=== PATIENT | female | born 1995 | race Two or more races ===

== ENCOUNTER 2018-12-10 18:23 | Inpatient (IN) | payer BC, OTHER ==
[~2018-12-10] VITALS: Ht 152.4 cm; Wt 50.5 kg
[2018-12-10] MEDS ORDERED: HYDROmorphone HCL 2 MG/ML VL IV ONE ×2 (19:45→21:00)
[2018-12-10] MEDS ORDERED: ONDANSETRON HCL 4 MG/2 ML VIAL IV ONE (19:45)
[2018-12-10 21:43] LABS: Eosinophils # (auto) 0.1 uL; Hemoglobin 12.8 g/dL (12.2-16.2); Lymphocytes # (auto) 2.1 uL; Monocytes # (auto) 0.6 uL; Neutrophils # (auto) 5.5 uL; Nucleated Red Blood Cells % 0.1 %; White Blood Cell 8.3 10^3/uL (4.4-10.8)
[2018-12-10 21:45] LABS: Basophils # (auto) 0.1 uL; Basophils % (auto) 0.9 % (0.0-2.0); Eosinophils % (auto) 0.9 % (0.0-7.0); Hematocrit 40.1 % (36.0-46.0); Lymphocytes % (auto) 24.7 % (10.0-50.0); Mean Corpuscular Hemoglobin 25.1 pg (28.0-32.0); Mean Corpuscular Hgb Conc. 31.8 g/dL (32.0-36.0); Mean Corpuscular Volume 78.8 fL (80.0-100.0); Monocytes % (auto) 7.4 % (0.0-12.0); Neutrophils % (auto) 66.1 % (37.0-80.0); Platelet Count (auto) 337 10^3/uL (140-450); Red Blood Cells 5.08 10^6/uL (4.0-5.20); Red Cell Distribution Width 18.8 % (11.8-14.3)
[2018-12-10 22:06] LABS: Albumin 4.2 g/dL (3.4-5.0); Calcium 9.2 mg/dL (8.5-10.1); Magnesium 2.1 mg/dL (1.6-2.6); Potassium 3.7 mmol/L (3.5-5.1)
[2018-12-10 22:11] LABS: BUN/Creatinine Ratio 11.5; Bilirubin, Total 0.5 mg/dL (0.2-1.0); Total Protein 8.1 g/dL (6.4-8.2)
[2018-12-10 22:14] LABS: INR 1.12 (0.9-1.15); Partial Thromboplastin Time 29.2 sec (23.78-33.04); Prothrombin Time 11.9 sec (9.27-12.13)
[2018-12-10] MEDS ORDERED: IOHEXOL 300 MG/ML 100ML BOTTLE IJ ONE (22:50)
[2018-12-10] MEDS ORDERED: SODIUM CHLORIDE 0.9% 1,000 ML IV ONE (23:00)
[2018-12-10 23:03] LABS: Urine Bacteria MOD /hpf (None Seen); Urine Blood Negative /uL (Negative); Urine Hyaline Cast FEW /lpf (0 - 2); Urine Mucus FEW (None Seen); Urine WBC 27 /hpf (0 - 5)
[2018-12-11] MEDS ORDERED: cefTRIAXone 1GM/50ML D5W 50 ML IV ONE (01:00)
[2018-12-11] MEDS ORDERED: PROMETHAZINE HCL 25 MG/ML 1ML IV ONE (01:37)
[2018-12-11] MEDS ORDERED: TEMAZEPAM 15 MG CAP PO PRN (05:45)
[2018-12-11] MEDS ORDERED: MORPHINE SULF INJ 2 MG/ML SYRINGE 1ML IV PRN (05:45)
[2018-12-11] MEDS ORDERED: HYDROcodone-ACET 5/325MG TAB PO PRN (05:45)
[2018-12-11] MEDS ORDERED: ACETAMINOPHEN 325 MG TAB PO PRN (05:45)
[2018-12-11] MEDS ORDERED: MORPHINE SULFATE 4 MG/ML SYR/VIAL IV PRN (05:45)
[2018-12-11] MEDS ORDERED: NITROGLYCERIN 0.4 MG SL TAB SL PRN (05:45)
--- NOTE | 2018-12-11 07:50 | NUR ---
RECEIVED FROM ER AWAKE ALERT ORIENTED TIMES 4. MOTHER AT BEDSIDE. INFORMED OF PLAN OF CARE.
--- NOTE | 2018-12-11 09:00 | NUR ---
MOTHER AT BEDSIDE ASKING ABOUT J POUCH. SHE SAID THE PATIENT IS HAVING SYMPTOMS/COMPLICATIONS OF J POUCH. SHE STATES SHE HAS HAD THE JPOUCH FOR 2 YEARS WITH NO COMPLICATIONS UNTIL NOW. SHE IS REQUESTING GI TO SEE PATIENT. I INFORMED HER THAT SHE WAS ADMITTED FOR [facility]NCOPE AND HAS A CARDIOLOGY CONSULT PENDING. I ASLO INFORMED HER THAT I WOULD NOTIFY THE ATTENDING PHYSICIAN THAT THEY ARE REQUESTING GI CONSULT. SHE STATES HER HEAD ATHLETIC TRAINER IS A [facility].
[2018-12-11 09:30] VITALS: BP 101/58
[2018-12-11] MEDS: ONDANSETRON HCL 4 MG/2 ML VIAL IV PRN ×4 (10:07→21:51)
--- NOTE | 2018-12-11 10:07 | NUR ---
MEDICATED WITH MORPHINE AND ZOFRAN FOR ABDOMINAL PAIN 03/07.
[2018-12-11] MEDS: cefTRIAXone 1GM/50ML D5W 50 ML IV SCH (10:24)
[2018-12-11] MEDS: FAMOTIDINE 20 MG TAB PO SCH ×2 (10:24→21:53)
--- NOTE | 2018-12-11 10:40 | NUR ---
PATIENT STATES PAIN IS STILL THERE 12/05
[2018-12-11 12:35] VITALS: BP 147/93
[2018-12-11 12:40] VITALS: BP 122/74
[2018-12-11] MEDS: MORPHINE SULFATE 4 MG/ML SYR/VIAL IV PRN ×3 (13:50→21:52)
[2018-12-11 16:50] VITALS: BP 93/55
[2018-12-11 18:57] LABS: Alcohol, Urine < 3.0 mg/dL (0-5); Amphetamine Screen, Urine NEGATIVE (NEGATIVE); Barbiturate Scree,Urine NEGATIVE (NEGATIVE); Benzodiazephine Screen, Urine NEGATIVE (NEGATIVE); Cannabinoid Screen, Urine POSITIVE (NEGATIVE); Cocaine Screen, Urine NEGATIVE (NEGATIVE); Opiate Scree,Urine POSITIVE (NEGATIVE); Phencyclidine Screen, Urine NEGATIVE (NEGATIVE)
--- NOTE | 2018-12-11 20:00 | NUR ---
Opening shift Note Pt is resting in bed A/Ox4 breathing is even and unlabored. NO signs of distress at this time. Bed is in lowest position, brake is set, bed alarm is set for pt safety. Pt asked when she can have pain Meds again, informed her that she can have Morphine again at 2145 per orders. Will continue to monitor Q1H and PRN. Signed: 12/12/18 at 041 by MALISSA PACHECO SN <Co-Signature Required> Co-Signed: 12/12/18 at 412 by BETSY SIMPSON RN
[2018-12-11 21:50] VITALS: BP 90/55
[2018-12-12 05:00] VITALS: BP 87/54
[2018-12-12] MEDS: ONDANSETRON HCL 4 MG/2 ML VIAL IV PRN ×3 (05:05→14:04)
[2018-12-12] MEDS: MORPHINE SULFATE 4 MG/ML SYR/VIAL IV PRN ×3 (05:10→14:04)
[2018-12-12 06:16] LABS: Basophils # (auto) 0.1 uL; Eosinophils # (auto) 0.1 uL; Hemoglobin 12.1 g/dL (12.2-16.2); Monocytes # (auto) 0.6 uL
[2018-12-12 06:19] LABS: Basophils % (auto) 0.8 % (0.0-2.0); Eosinophils % (auto) 1.9 % (0.0-7.0); Hematocrit 37.8 % (36.0-46.0); Lymphocytes # (auto) 2.3 uL; Lymphocytes % (auto) 33.1 % (10.0-50.0); Mean Corpuscular Hemoglobin 25.2 pg (28.0-32.0); Mean Corpuscular Volume 78.8 fL (80.0-100.0); Monocytes % (auto) 8.4 % (0.0-12.0); Neutrophils # (auto) 3.9 uL; Neutrophils % (auto) 55.8 % (37.0-80.0); Platelet Count (auto) 299 10^3/uL (140-450); Red Cell Distribution Width 18.9 % (11.8-14.3); White Blood Cell 7.1 10^3/uL (4.4-10.8)
[2018-12-12 06:30] VITALS: BP 98/61
[2018-12-12 06:40] LABS: BUN/Creatinine Ratio 7.1
--- NOTE | 2018-12-12 08:27 | NUR ---
PATIENT REQUESTING DILAUDID. SHE SAID THE MORPHINE ISN'T WORKING. I WILL NOTIFY DR Leanna BOUCHER OF PATIENT'S REQUEST. I ASLO TOLD HER I CAN NOT GIVE HER NARCOTICS WITH HER BLOOD PRESSURE BEING SO LOW 89/56
[2018-12-12 08:41] VITALS: BP 99/44
[2018-12-12] MEDS: cefTRIAXone 1GM/50ML D5W 50 ML IV SCH (10:08)
[2018-12-12] MEDS: FAMOTIDINE 20 MG TAB PO SCH (10:09)
[2018-12-12 12:32] VITALS: BP 80/49
[2018-12-13] MEDS ORDERED: DOXY25TA9 PO (14:30)
[2018-12-13] MEDS ORDERED: HYDR-4683 PO (14:30)
== END 2018-12-12 15:25 | disposition home or self-care (01) | DRG 690 ==
LOC: EDBD 18:23 → ER 18:23 → TELE 12-11 05:55 → TELE-WESTW 12-11 08:48
PROVIDERS: ADMIT Nurse Practitioner; ATTEND Family Medicine
DX: N39.0 Urinary tract infection, site not specified (principal); K50.10 Crohn's disease of large intestine without complications; G89.4 Chronic pain syndrome; F12.90 Cannabis use, unspecified, uncomplicated; Z90.49 Acquired absence of other specified parts of digestive tract; D27.9 Benign neoplasm of unspecified ovary; R00.2 Palpitations; Z88.7 Allergy status to serum and vaccine; Z91.013 Allergy to seafood
CPT/HCPCS: 36415; 70450; 71045; 74176; 80048; 80053; 80307; 81001; 81025; 82150; 82962; 83605; 83690; 83735; 84484; 85025; 85610; 85730; 87040; 87081; 87086; 93005; 93306; 93886; 96365; 96375; 96376; G0378; J0696; J2405

== ENCOUNTER 2018-12-13 01:44 | Inpatient (IN) | payer BC ==
[~2018-12-13] VITALS: Ht 172.7 cm; Wt 53.7 kg
[2018-12-13 03:18] LABS: Eosinophils # (auto) 0.1 uL; Mean Corpuscular Hemoglobin 25.3 pg (28.0-32.0); Mean Corpuscular Hgb Conc. 32.1 g/dL (32.0-36.0); Red Blood Cells 5.15 10^6/uL (4.0-5.20)
[2018-12-13 03:20] LABS: Basophils # (auto) 0.1 uL; Basophils % (auto) 0.7 % (0.0-2.0); Eosinophils % (auto) 1.4 % (0.0-7.0); Hematocrit 40.5 % (36.0-46.0); Lymphocytes # (auto) 2.6 uL; Mean Corpuscular Volume 78.7 fL (80.0-100.0); Monocytes # (auto) 0.6 uL; Monocytes % (auto) 7.8 % (0.0-12.0); Neutrophils # (auto) 4.2 uL; Neutrophils % (auto) 56.1 % (37.0-80.0); Nucleated Red Blood Cells % 0.2 %; Platelet Count (auto) 323 10^3/uL (140-450); Red Cell Distribution Width 18.5 % (11.8-14.3); White Blood Cell 7.5 10^3/uL (4.4-10.8)
[2018-12-13 03:25] LABS: Albumin 3.7 g/dL (3.4-5.0); Calcium 8.9 mg/dL (8.5-10.1); Potassium 4.5 mmol/L (3.5-5.1)
[2018-12-13 03:27] LABS: BUN/Creatinine Ratio 10.8
[2018-12-13 03:30] LABS: Bilirubin, Total 0.4 mg/dL (0.2-1.0); Total Protein 8.5 g/dL (6.4-8.2)
[2018-12-13] MEDS ORDERED: SODIUM CHLORIDE 0.9% 1,000 ML IVB ONE (08:18)
[2018-12-13] MEDS ORDERED: PROMETHAZINE HCL 25 MG/ML 1ML IV PRN ×2 (08:30→13:00)
[2018-12-13] MEDS ORDERED: PANTOPRAZOLE 40 MG TAB PO ONE (08:30)
[2018-12-13] MEDS ORDERED: KETOROLAC TROMETH 30 MG/ML 1ML VIAL IV ONE (08:30)
[2018-12-13 08:59] LABS: Urine Bacteria NONE SEEN /hpf (None Seen); Urine Blood Negative /uL (Negative); Urine Mucus FEW (None Seen); Urine WBC 13 /hpf (0 - 5)
[2018-12-13] MEDS ORDERED: cefTRIAXone 1GM/50ML D5W 50 ML IV ONE (11:15)
[2018-12-13] MEDS ORDERED: SODIUM CHLORIDE 0.9% 1,000 ML IV SCH (12:54)
[2018-12-13] MEDS ORDERED: traMADol HCL 50 MG TAB PO PRN (13:00)
[2018-12-13] MEDS ORDERED: NITROGLYCERIN 0.4 MG SL TAB SL PRN (13:00)
[2018-12-13] MEDS ORDERED: MORPHINE SULF INJ 2 MG/ML SYRINGE 1ML IV PRN (13:00)
[2018-12-13] MEDS ORDERED: ACETAMINOPHEN 500 MG TAB PO PRN (13:00)
[2018-12-13] MEDS ORDERED: HYDR-4683 PO (14:30)
[2018-12-13] MEDS ORDERED: DOXY25TA9 PO (14:30)
--- NOTE | 2018-12-13 14:30 | NUR ---
ADMIT: LUIS A MILLAN admitted to tele/MS after SBAR received. Patient oriented to DAVID AMAYA, primary RN, unit, room, bed, and unit policies regarding patient care and visiting hours. Patient weighed by bedscale and encouraged to call if they need something. All questions and concerns addressed, patient verbalized understanding. Note:
[2018-12-13] MEDS: D5W/SOD CHLO 0.9% 1,000 ML IV SCH (15:19)
[2018-12-13] MEDS: KETOROLAC TROMETH 30 MG/ML 1ML VIAL IV PRN (15:19)
[2018-12-13] MEDS: ACCU-CHEK COMFORT CURVE STRIP VI SCH ×3 (16:00→23:14)
--- NOTE | 2018-12-13 17:18 | NUR ---
PAIN: Patient continues to complain of abdominal pain. Patient previously medicated with Toradol with little to no relief of pain. Patient offered Tramadol and is refusing stating "these pain medications don't work" and is requesting to speak with the doctor about her pain medications. Patient is also requesting to have some crackers, but RN explained to patient that current diet order has her NPO. Dr Stewart, parlor chaperone hospitalist, paged.
--- NOTE | 2018-12-13 17:45 | NUR ---
FAMILY: Spoke with patient and her mother in length at bedside. Mother is voicing concern about her daughter being NPO due to her 'Jpouch'. Patient and mother state that she must constantly have crackers to help with the stomach acid production or she will be in immense pain. Explained that Dr Stewart was paged and I will request he come speak with patient and her mother in regards to diet and pain medication. Patient states that a combination of dialudid and zofran help manage her pain. Addendum: 12/13/18 at 1748 by DAVID AMAYA RN Patient provided crackers and ice chips despite, NPO status.
--- NOTE | 2018-12-13 18:09 | NUR ---
MD: T/C from Dr Stewart. Relayed info to MD in regards to patient and mother's concern about diet and pain medication. Orders received to place on clear liquid diet, dilaudid PRN pain and zofran PRN nausea.
[2018-12-13] MEDS: HYDROmorphone HCL 2 MG/ML VL IV PRN ×2 (18:36→22:33)
[2018-12-13] MEDS: ONDANSETRON HCL 4 MG/2 ML VIAL IV PRN (18:37)
--- NOTE | 2018-12-13 19:26 | NUR ---
Opening Shift Note Assumed care of patient, awake and alert x 4. No S/S of distress/SOB. D5/0.9% NS infusing at 100 ml/hr. Bed is in lowest position and locked. Call light within reach. Board updated. Instructed on POC and to call for assist PRN, will continue to monitor for changes Q1hr and PRN.
--- NOTE | 2018-12-13 19:33 | NUR ---
CLOSING SHIFT NOTE: Report given to NOC RNAngel. Endorsed care of patient.
[2018-12-13 21:53] VITALS: BP 101/56
[2018-12-13] MEDS: FAMOTIDINE 20 MG TAB PO SCH (21:53)
[2018-12-13] MEDS: TEMAZEPAM 15 MG CAP PO PRN (22:33)
--- NOTE | 2018-12-14 00:02 | NUR ---
Paging hospitalist because patient is still reporting pain 7 out of 10 in her lower abdomen despite receiving Dilaudid 0.5 mg. I gave Toradol 15 mg IV but the reason patient was prescribed Dilaudid was because the Toradol was not working.
[2018-12-14] MEDS: KETOROLAC TROMETH 30 MG/ML 1ML VIAL IV PRN (00:07)
--- NOTE | 2018-12-14 00:57 | NUR ---
Spoke to NICK Rubi who ordered Sargeant 10/325 mg PO 1 6 hrs PRN pain.
[2018-12-14] MEDS: D5W/SOD CHLO 0.9% 1,000 ML IV SCH ×3 (01:13→20:21)
[2018-12-14] MEDS: HYDROcodone-ACET 10/325MG TAB PO PRN (01:24)
[2018-12-14] MEDS: HYDROmorphone HCL 2 MG/ML VL IV PRN ×5 (02:32→21:57)
[2018-12-14] MEDS: ACCU-CHEK COMFORT CURVE STRIP VI SCH ×3 (03:50→12:29)
[2018-12-14 05:00] VITALS: BP 101/57
[2018-12-14 06:20] LABS: Basophils # (auto) 0 uL; Basophils % (auto) 0.7 % (0.0-2.0); Eosinophils # (auto) 0.1 uL; Eosinophils % (auto) 1.9 % (0.0-7.0); Hemoglobin 11.4 g/dL (12.2-16.2); Lymphocytes # (auto) 2.3 uL; Lymphocytes % (auto) 46.5 % (10.0-50.0); Mean Corpuscular Hgb Conc. 31.7 g/dL (32.0-36.0); Monocytes # (auto) 0.4 uL; Monocytes % (auto) 7.5 % (0.0-12.0); Neutrophils # (auto) 2.2 uL; Neutrophils % (auto) 43.4 % (37.0-80.0); Nucleated Red Blood Cells % 0.1 %; Platelet Count (auto) 277 10^3/uL (140-450); Red Blood Cells 4.55 10^6/uL (4.0-5.20); Red Cell Distribution Width 18.5 % (11.8-14.3)
[2018-12-14 06:46] LABS: Albumin 3.3 g/dL (3.4-5.0); BUN/Creatinine Ratio 7.9; Calcium 8.5 mg/dL (8.5-10.1); Potassium 3.6 mmol/L (3.5-5.1)
[2018-12-14 06:48] LABS: Bilirubin, Total 0.5 mg/dL (0.2-1.0)
--- NOTE | 2018-12-14 07:30 | NUR ---
OPENING SHIFT NOTE: Received report from NOC RN, Angel. Assumed care of patient. Patient sitting up in bed. C/O abdominal pain, but is being managed with dialudid. Currently refusing [place], but is aware that the medication is available. Bed in lowest position, rails x2 up and call light within reach. Updated on plan of care. Will continue to monitor.
[2018-12-14 09:00] VITALS: BP 101/60
[2018-12-14] MEDS: FAMOTIDINE 20 MG TAB PO SCH ×2 (09:49→21:56)
[2018-12-14] MEDS: cefTRIAXone 1GM/50ML D5W 50 ML IV SCH (09:49)
[2018-12-14] MEDS: ONDANSETRON HCL 4 MG/2 ML VIAL IV PRN ×3 (12:02→21:56)
[2018-12-14 13:00] VITALS: BP 102/51
--- NOTE | 2018-12-14 13:00 | NUR ---
MD: Dr Ku to see patient.
--- NOTE | 2018-12-14 15:05 | NUR ---
MD: Dr Marivel Stapleton to see patient. No GI intervention to be done at this time. Per MD, patient needs to follow up with MD in [place].
[2018-12-14 17:00] VITALS: BP 101/67
--- NOTE | 2018-12-14 19:14 | NUR ---
CLOSING SHIFT NOTE: Report given to NOC RN, Jayme. Endorsed care of patient.
--- NOTE | 2018-12-14 19:22 | NUR ---
Opening Shift Note Assumed care of patient, awake and alert. No S/S of distress/SOB or pain. Pt is currently in bed with the rails up x2. The bed is locked and in the lowest position. The call light is within reach. Instructed on POC and to call for assist when needed. The pt has a 20ga IV in the left upper arm running D5NS at 100ml per hour. Will continue to monitor.
[2018-12-14] MEDS: TEMAZEPAM 15 MG CAP PO PRN (21:56)
[2018-12-14 22:00] VITALS: BP 118/51
[2018-12-15] MEDS: HYDROmorphone HCL 2 MG/ML VL IV PRN ×2 (03:11→08:46)
[2018-12-15] MEDS: ONDANSETRON HCL 4 MG/2 ML VIAL IV PRN ×2 (03:11→08:45)
[2018-12-15 05:28] VITALS: BP 97/59
[2018-12-15] MEDS: HYDROcodone-ACET 10/325MG TAB PO PRN (05:39)
[2018-12-15] MEDS: D5W/SOD CHLO 0.9% 1,000 ML IV SCH (05:39)
[2018-12-15] MEDS: FAMOTIDINE 20 MG TAB PO SCH (08:46)
[2018-12-15] MEDS: cefTRIAXone 1GM/50ML D5W 50 ML IV SCH (08:46)
[2018-12-15 09:24] VITALS: BP 102/62
--- NOTE | 2018-12-15 11:05 | NUR ---
Hospitalist at bedside MD Ku at bedside, aware of patient's status including pt c/o pain and requesting "Dilaudid to be increased". MD Ku spoke to patient extensively regarding POC, f/u instructions including following up with primary doctor and specialist at [facility] as soon as possible. Pt was counseled about treatment plan, medications, possible side effects, patientverbalized understanding. All questions were answered. Will d/c patient as ordered.
--- NOTE | 2018-12-15 11:40 | NUR ---
Spoke to GI doctor This rn spoke to Marivel Rome. She states she spoke to patient yesterday and instructed her regarding d/c follow up instructions. Per MD no GI intervention is required or recommended at this time. She states she advised patient to follow up with her surgeon in [place]. Will d/c as ordered.
--- NOTE | 2018-12-15 12:36 | NUR ---
near eastern archaeology lecturer at bedside pt requested to speak to supervisor hardboard, Erin admission discharge rn at bedside to speak to patient and pt's mother at bedside. Erin spoke to patient and answered all questions and concerns. Pt's mother requesting "FMLA form to be filed out by the hospital" but per family welfare social work professor we are unable to do it here and patient referred to PCP for form. Pt had requested to "get different doctor", per staff command and control officer no need for different doctor at this time. Pt will be discharged as ordered. She states she "will just come right back to the ER".
--- NOTE | 2018-12-15 12:53 | NUR ---
Discharge instructions given as ordered to patient and pt's mother at bedside. Encourage to follow up with PMD as instructed at [facility]. Patient verbalized understanding and denies having questions that need to be addressed. Pt states she "already knows everything" including all the instructions and follow up. Medication reconciliation form completed and copy given to patient. IV removed with catheter intact, pressure dressing applied. Pt refused to sign d/c paperwork and belongings sheet stating she "will not come back to this hospital". Ro international trade analyst at bedside as well. Patient refused wheel chair. Pt noted ambulating down to lobby with all personal belongings, accompanied by her mother. No distress noted at time of departure. Pt instructed to return to ER if symptoms worsen or recur. No distress noted or sob on departure.
[2018-12-15 13:08] VITALS: BP 118/87
== END 2018-12-15 13:00 | disposition home or self-care (01) | DRG 394 ==
LOC: ER 01:44 → EDBD 01:44 → OVERFLOW 12:54 → CENTRAL 14:00 → TELE-CENTR 21:44 → CENTRAL 21:49
PROVIDERS: ADMIT Internal Medicine; ATTEND Internal Medicine
DX: K66.0 Peritoneal adhesions (postprocedural) (postinfection) (principal); F11.20 Opioid dependence, uncomplicated; K50.80 Crohn's disease of both small and large intestine without complications; N39.0 Urinary tract infection, site not specified; F12.10 Cannabis abuse, uncomplicated; F41.9 Anxiety disorder, unspecified; D36.9 Benign neoplasm, unspecified site; E16.2 Hypoglycemia, unspecified; G89.29 Other chronic pain; K21.9 Gastro-esophageal reflux disease without esophagitis; Z90.49 Acquired absence of other specified parts of digestive tract; Z93.3 Colostomy status; Z88.7 Allergy status to serum and vaccine; Z91.013 Allergy to seafood; Z83.79 Family history of other diseases of the digestive system
CPT/HCPCS: 36415; 74176; 80053; 81001; 81025; 82150; 82962; 83690; 83735; 84443; 85025; 85652; 86141; 87086; 87088; 93005; 96374; 96375; G0378; J0696; J1885; J2405; J7042

== ENCOUNTER 2019-09-25 11:52 | Emergency (ER) | payer BC, OTHER ==
[~2019-09-25] VITALS: Ht 167.6 cm; Wt 47.6 kg
[~2019-09-25 11:52] MED LIST: DOXY25TA9 PO; HYDR-4833 PO
[2019-09-25] MEDS ORDERED: SODIUM CHLORIDE 0.9% 1,000 ML IVB ONE (12:59)
[2019-09-25 13:25] LABS: Eosinophils # (auto) 0 uL; Hematocrit 37.7 % (36.0-46.0); Lymphocytes # (auto) 1.1 uL; Monocytes # (auto) 0.7 uL; Neutrophils # (auto) 13.2 uL; Nucleated Red Blood Cells % 0.1 %; White Blood Cell 15.1 10^3/uL (4.4-10.8)
[2019-09-25 13:27] LABS: Basophils # (auto) 0.1 uL; Basophils % (auto) 0.3 % (0.0-2.0); Hemoglobin 12.1 g/dL (12.2-16.2); Lymphocytes % (auto) 7.2 % (10.0-50.0); Mean Corpuscular Hemoglobin 25.5 pg (28.0-32.0); Mean Corpuscular Volume 79.6 fL (80.0-100.0); Monocytes % (auto) 4.8 % (0.0-12.0); Neutrophils % (auto) 87.7 % (37.0-80.0); Platelet Count (auto) 335 10^3/uL (140-450); Red Blood Cells 4.74 10^6/uL (4.0-5.20); Red Cell Distribution Width 18.5 % (11.8-14.3)
[2019-09-25] MEDS ORDERED: SODIUM CHLORIDE 0.9% 1,000 ML IV ONE (13:45)
[2019-09-25] MEDS ORDERED: PROMETHAZINE HCL 25 MG/ML 1ML IV ONE (13:45)
[2019-09-25 13:48] LABS: Albumin 3.9 g/dL (3.4-5.0); BUN/Creatinine Ratio 10.6; Calcium 9.4 mg/dL (8.5-10.1); Potassium 4.4 mmol/L (3.5-5.1)
[2019-09-25 13:51] LABS: Bilirubin, Total 0.7 mg/dL (0.2-1.0); Total Protein 8.8 g/dL (6.4-8.2)
[2019-09-25] MEDS ORDERED: ONDANSETRON HCL 4 MG/2 ML VIAL IV ONE (16:00)
[2019-09-25] MEDS ORDERED: MORPHINE SULF INJ 2 MG/ML SYRINGE 1ML IV ONE (16:00)
[2019-09-25 16:44] LABS: Urine WBC None Seen /hpf (0 - 5)
[2019-09-25 16:52] LABS: Urine Bacteria NONE SEEN /hpf (None Seen); Urine Blood 3+ /uL (Negative)
[2019-09-25 17:31] VITALS: BP 91/54
== END 2019-09-25 18:08 | disposition home or self-care (01) ==
LOC: EDBD 11:52 → ER 11:52
DX: O03.80 Unspecified complication following complete or unspecified spontaneous abortion (principal); O23.41 Unspecified infection of urinary tract in pregnancy, first trimester; O21.8 Other vomiting complicating pregnancy; Z3A.01 Less than 8 weeks gestation of pregnancy
CPT/HCPCS: 36415; 76801; 76817; 80053; 81001; 84702; 85025; 96361; 96374; 96375; 99284; J2270; J2405; J2550; J7030